=== PATIENT | female | born 1950 | race Native Hawaiian/Other Pacific Islander ===

== ENCOUNTER 2017-03-28 21:29 | Emergency (ER) | payer OTHER ==
[~2017-03-28] VITALS: Ht 165.1 cm; Wt 65.3 kg
[2017-03-28] MEDS ORDERED: DULO60CA2 OR (22:04)
[2017-03-28] MEDS ORDERED: MIRAPEX1.5 MG OR (22:04)
[2017-03-28] MEDS ORDERED: OMEPRAZOLE40 MG OR (22:05)
[2017-03-28] MEDS ORDERED: GRALISE600 MG OR (22:05)
[2017-03-28] MEDS ORDERED: LEVSIN0.125 MG OR (22:06)
[2017-03-28] MEDS ORDERED: DICL75TA4 PO (22:07)
[2017-03-28] MEDS ORDERED: PROM25TA52 PO (22:07)
[2017-03-28] MEDS ORDERED: VITAMIN D50000 UNT PO (22:08)
[2017-03-28] MEDS ORDERED: TRAM50TA PO (22:09)
[2017-03-28] MEDS ORDERED: BENADRYL ALLERG25 MG OR (22:10)
[2017-03-28] MEDS ORDERED: CARV3.12 PO (22:11)
[2017-03-28] MEDS ORDERED: BROVANA15 MCG IN (22:12)
[2017-03-28] MEDS ORDERED: IPRATROPIUM/ IN (22:13)
[2017-03-28 23:02] LABS: PLATELET COUNT 254 K/uL (152-353)
[2017-03-28 23:08] LABS: POTASSIUM 3.6 mmol/L (3.6-5.2); SODIUM 142 mmol/L (136-145)
[2017-03-29 00:01] VITALS: BP 122/64; TEMP 98.5
== END 2017-03-28 23:55 | disposition home or self-care (01) ==
LOC: ED 21:29
DX: R10.9 Unspecified abdominal pain (principal); Z93.2 Ileostomy status
CPT/HCPCS: 36415; 80053; 85027; 99283; J1885; J2405

== ENCOUNTER 2017-05-31 21:15 | Emergency (ER) | payer OTHER ==
[~2017-05-31] VITALS: Ht 165.1 cm; Wt 68.0 kg
[~2017-05-31 21:15] MED LIST: BENADRYL ALLERG25 MG OR; BROVANA15 MCG IN; CARV3.12 PO; DICL75TA4 PO; DULO60CA2 OR; GRALISE600 MG OR; IPRATROPIUM/ IN; LEVSIN0.125 MG OR; MIRAPEX1.5 MG OR; OMEPRAZOLE40 MG OR; PROM25TA52 PO; TRAM50TA PO; VITAMIN D50000 UNT PO
[2017-05-31] MEDS ORDERED: BROTAPP OR (21:37)
[2017-05-31] MEDS ORDERED: PROM25TA52 PO (21:38)
[2017-05-31] MEDS ORDERED: OMEPRAZOLE40 MG OR (21:39)
[2017-05-31] MEDS ORDERED: DULO30CA OR (21:40)
[2017-05-31] MEDS ORDERED: CARV3.12 PO (21:41)
[2017-05-31] MEDS ORDERED: HYOSCYAMINE0.125 M2 PO (21:41)
[2017-05-31] MEDS ORDERED: MONTELUKAST SOD10 MG PO (21:42)
[2017-05-31] MEDS ORDERED: GABA300C2 PO (21:43)
[2017-05-31] MEDS ORDERED: ROPINIROLE1 MG OR (21:45)
[2017-05-31] MEDS ORDERED: TRAMADOL HCL E100 M1 PO (21:45)
[2017-05-31 21:50] VITALS: BP 136/99; TEMP 98.1
== END 2017-05-31 22:13 | disposition home or self-care (01) ==
LOC: ED 21:15
DX: M25.552 Pain in left hip (principal); S76.012A Strain of muscle, fascia and tendon of left hip, initial encounter; X58.XXXA Exposure to other specified factors, initial encounter; Y93.89 Activity, other specified; Y92.89 Other specified places as the place of occurrence of the external cause
CPT/HCPCS: 96372; 99282; J1885

== ENCOUNTER 2018-01-21 15:53 | Outpatient (CLI) | payer OTHER ==
[~2018-01-21 15:53] MED LIST changes: +BROTAPP OR; +DULO30CA OR; +GABA300C2 PO; +HYOSCYAMINE0.125 M2 PO; +MONTELUKAST SOD10 MG PO; +ROPINIROLE1 MG OR; +TRAMADOL HCL E100 M1 PO
== END 2018-01-21 22:09 | disposition home or self-care (01) ==
LOC: LABW 15:53
DX: K91.850 Pouchitis (principal)
CPT/HCPCS: 87015; 87045; 87899

== ENCOUNTER 2018-01-31 12:49 | Outpatient (CLI) | payer OTHER | END 2018-01-31 20:10 | disposition home or self-care (01) | LOC: CT 12:49 | DX: K43.5 Parastomal hernia without obstruction or gangrene (principal) | CPT/HCPCS: 36415; 82565; 84520 ==